=== PATIENT | male | born 1995 | race African-American/Black ===

== ENCOUNTER → 2017-01-02 | Outpatient (CLI) | payer OTHER ==
[~2017-01-02] MED LIST: ISOVUE-370 76% 100ML VIAL (Q9967) As Ordered ONE
--- NOTE | 2017-01-03 07:27 | REP ---
Clinical: Pulmonary nodule. Technique: Axial contrast enhanced images from the thoracic inlet to the upper abdomen using 100 ml Isovue 370 intravenous contrast material with multiplanar re-formations. Comparison: None. 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 The remainder of lung mckoy are well-aerated and clear. No further consolidation, nodule or mass lesion is appreciated. No pleural effusion. No pneumothorax. Tracheobronchial tree is patent. Mediastinum demonstrates normal thoracic aorta and heart/pericardium. No adenopathy. 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 No further abnormalities appreciated. Signed by Олег Huerta MD 01/03/2017 07:18 A
== END ==
LOC: M RAD 18:25
PROVIDERS: ATTEND Physician Assistant Surgical
DX: R91.1 Solitary pulmonary nodule (principal)

== ENCOUNTER → 2017-05-01 | Outpatient (CLI) | payer OTHER ==
[~2017-05-01] MED LIST changes: -ISOVUE-370 76% 100ML VIAL (Q9967) As Ordered ONE; +METHACHOLINE KIT (J7674) INH ONE
--- NOTE | 2017-05-01 11:10 | PFTRPT ---
Tech: Jesus Alberto ALBARADO RRT Age: 22 Sex: Male Race: Black Height: 70.00 Inches Weight: 146.00 Lbs BSA: 1.83 Diagnosis: Q25.72 TECH NOTE: Test appears to be valid, although the ATS standard for "end of test " was not met. The patient was given four puffs of albuterol for postbronchodilator. METHACHOLINE CHALLENGE REPORT: ORDERING PROVIDER: Domingo Camargo MD DATE OF SERVICE: 05/01/17 INTERPRETATION: The study was of excellent technical quality. Under protocol, methacholine was administered. Even after a maximal dose of 25 mg (188.875 CDUs) of methacholine , no provocation dose was ever achieved. IMPRESSION: Negative methacholine challenge study. MTDD
== END ==
LOC: M CARPUL 10:30
PROVIDERS: ATTEND Internal Medicine Pulmonary Disease
DX: Q25.72 Congenital pulmonary arteriovenous malformation (principal)

== ENCOUNTER → 2017-05-17 | Outpatient (CLI) | payer OTHER ==
--- NOTE | 2017-05-17 09:37 | REP ---
MRI BRAIN WITHOUT AND WITH CONTRAST: 05/17/2017. Comparison: 08/01/2016. Clinical history: Headaches. History of pulmonary AV malformation. Technique: Axial T1, T2, FLAIR, diffusion weighted images and ADC mapping sequences with sagittal T1 sequence. After infusion of 13 mL of ProHance, axial and coronal T1 sequence were then performed. Comparison: CT brain 08/01/2016. Lateral ventricles are midline, symmetric and without dilatation or displacement. Third and fourth ventricles were also unremarkable. Basal ganglia were symmetric and normal. The tam-white junction differentiation well maintained. The white matter tracts show no T2 or FLAIR hyperintense signal foci in periventricular deep central or subcortical white matter. Cortical stripe is preserved. There is no atrophy, hemorrhage, infarct or mass. No extra-axial fluid collections. Brainstem and cerebellum show no signal abnormality. Seventh/eighth cranial nerve complexes were symmetric and normal. Mastoid aeration intact. There is very minor mucosal thickening of the maxillary and some ethmoid air cells. Frontal air cells are clear. Sphenoid sinuses show minimal mucosal thickening without air fluid levels in any of the sinuses. The corpus callosum, optic chiasm and pituitary were normal. No cerebellar tonsillar ectopia. No vascular lesion is identified. Orbits and contents symmetric and normal. On the contrast images, there is no vascular abnormality of the cerebral vessels of the [place]. There is no gyriform enhancement, enhancing mass or vascular malformation. The meninges show normal enhancement. Impression: 1. No MR evidence of intracranial vascular lesion, hemorrhage, mass, white matter tract abnormality or other acute finding. 2. There is minor sinus mucosal thickening throughout, sparing only the frontal sinuses. No air-fluid levels. Signed by Jaciel Kapadia MD 05/17/2017 10:25 A
== END ==
LOC: M RAD 06:50
PROVIDERS: ATTEND Physician Assistant
DX: R51 Headache (principal)